=== PATIENT | female | born 1975 | race Caucasian/White ===

== ENCOUNTER → 2023-08-11 14:54 | Outpatient (REF) | payer BC, SELFPAY | LOC: CLAB 14:54 | PROVIDERS: ATTENDING PHYSICIAN Specialist | DX: N62 Hypertrophy of breast (principal) | CPT/HCPCS: 88305 ==

== ENCOUNTER → 2024-06-05 08:30 | Outpatient (REF) | payer BC, SELFPAY | LOC: CLAB 08:30 | PROVIDERS: ATTENDING PHYSICIAN Specialist | DX: T85.79XA Infection and inflammatory reaction due to other internal prosthetic devices, implants and grafts, initial encounter (principal) | CPT/HCPCS: 87070; 87147; 87205 ==